=== PATIENT | male | born 1930 | race Caucasian/White ===

== ENCOUNTER 2019-12-03 15:52 | Emergency (ER) | payer MEDICARE ==
[~2019-12-03] VITALS: Ht 170.2 cm; Wt 65.8 kg
[2019-12-03] MEDS ORDERED: ZYPREXA2.5 MG PO (18:39)
--- NOTE | 2019-12-04 18:03 | EKG ---
[facility] [address] [facility] [place], [place] [address] Signed Sinus rhythm with 1st degree AV block Left axis deviation Incomplete right bundle branch block Abnormal ECG No previous ECGs available Confirmed by YVETTE SUTTON DO ([id number]) on 12/04/2019 6:03:20 PM Electronically Signed By: YVETTE SUTTON DO 12/04/19 1803 PATIENT NAME: EDMUND ALVARADO FUNMILAYO Electrocardiogram DATE OF : 34 PHYSICIAN: YVETTE SUTTON DO REPORT #: [id number] REPORT IS CONFIDENTIAL AND NOT TO BE RELEASED WITHOUT AUTHORIZATION
== END 2019-12-03 19:15 | disposition home or self-care (01) ==
LOC: ED 15:52
DX: R41.0 Disorientation, unspecified (principal)
CPT/HCPCS: 70450; 71046; 80053; 81001; 83605; 84484; 85025; 93005; 93010; 99285-25